=== PATIENT | female | born 1990 | race Caucasian/White ===

== ENCOUNTER 2022-08-22 11:47 | Outpatient (CLI) | payer OTHER, SELFPAY ==
--- NOTE | ~2022-08-22 | XR_ITS ---
XR hip LT min 2V DATE: 08/22/2022 12:07 INDICATION: Intermittent left hip pain for 2 months TECHNIQUE: AP and lateral views COMPARISON: None FINDINGS: There is prominent degenerative spurring of the left femoral head and mild left hip joint s pace narrowing, consistent with mild to moderate left hip osteoarthritis. No fracture or dislocation, avascular necrosis or bone destruction is detected. The pubic symphysis and left sacroiliac joint are intact. IMPRESSION: Mild/moderate left hip osteoarthritis Reviewed, dictated and finalized at location L.
== END 2022-08-22 11:48 | disposition home or self-care (01) ==
LOC: CHSIMG 11:55
DX: M25.552 Pain in left hip (principal); M16.11 Unilateral primary osteoarthritis, right hip
CPT/HCPCS: 73502

== ENCOUNTER 2022-09-04 16:49 | Outpatient (RCR) | payer OTHER, SELFPAY ==
--- NOTE | 2022-09-05 08:10 | OPREHPOC ---
Outpatient Therapy Plan of Care This is a Multidisciplinary Plan of Care that may contain components documented by all disciplines (PT, OT, and ST.) PT Problem 1 PT Problem #1 Knowledge Deficit PT Goal 1 Goal Patient to demonstrate independence with HEP Target Visit 6 PT Problem 2 PT Problem #2 Pain PT Goal 1 Goal 1. Patient to report highest pain at 2/10 2. Patient to report no sleep disturbance due to hip pain Target Visit 12 PT Problem 3 PT Problem #3 Impaired Strength PT Goal 1 Goal Patient to demonstrate B hip strength to 5/5 to improve ability to ambulate prolonged periods of time Target Visit 12 PT Problem 4 PT Problem #4 Impaired Functional Mobil PT Goal 1 Goal 1. Patient to report ability to sit at her desk for >1 hour without increase in L hip pain 2. Patient to improve LEFS score by 20% Target Visit 12
--- NOTE | 2022-09-05 08:10 | PTOPEVAL1 ---
Assessment and note entered by Yovana Gaspar DPT Evaluation Information Assessment Status Evaluation Diagnosis L hip pain Onset 08/21/22 Subjective Information Patient reports over the last several years she has had left hip stiffness that would result in a pop and then feel better for the next few months. Over the last 2-3 months pain has been more presistent. Patient has difficulty with sitting for prolonged periods, standing for prolonged periods of time and walking prolonged distances. Patient She reports pain is on the lateral hip. She reports pain radiates to knee and nieto. She reports some mild back pain. Reported Pain Level Pain Score 3: Self Report Assessment PT Clinical Summary Patient is a 32 year old female who presents to PT with L hip pain. Patient demonstrates decreased L hip strength, decreased flexibility of R LE > L LE and decreased core strength consistent with B hip arthritis. Patient demonstrates difficulty with sitting for long periods of time, standing for kitchen tasks and walking prolonged periods of time. Patient would benefit from skilled PT to address impairments and return to PLOF. Plan of Care Interventions Electrical Stimulation,Gait Training,Hot Pack/Cold Pack,Manual Therapy,Mechanical Traction,Neuro Re- education,Patient/Caregiver Educati,Therapeutic Activities,Therapeutic Exercise PT Services Indicated Yes Treatment Frequency and 2x weekly for 12 visits Duration These treatments will address the objective and functional deficits as defined above. The patient will be advanced safely and appropriately in order for the patient to progress towards his/her prior level of function. Additional exercises will be introduced and as well as a comprehensive home exercise program upon discharge, if needed, ?to ensure carryover of functional gains achieved in the clinic. This treatment plan has been reviewed and agreement upon by the patient.
--- NOTE | 2022-09-27 07:33 | PCPTNOTE ---
patient was a no call/no show on 09/26/22.
== END 2022-09-21 16:34 | disposition home or self-care (01) ==
LOC: CHSPT 16:49
DX: M25.552 Pain in left hip (principal)
CPT/HCPCS: 97110; 97140; 97161